=== PATIENT | female | born 1950 | race Caucasian/White ===

== ENCOUNTER 2017-12-06 12:07 | Day surgery (SDC) | payer OTHER ==
[2017-11-29 16:16] VITALS: BMI 29.2
[2017-12-06 15:38] VITALS: TEMP 98.1
[2017-12-06 16:05] VITALS: BP 131/65; PULSE 70
--- NOTE | 2017-12-08 12:02 | PATH ---
Surgical Pathology Report Patient Name: HINA TIERNEY [facility]. Rec. #: [id number] /Age/Gender: 1950 (Age: 67) / F Account: [id number] Location: Taken: 12/06/2017 Received: 12/06/2017 Reported: 12/08/2017 Physicians: Hina Stephens M.D. Specimen(s) Received A: POLYP ASCENDING COLON B: POLYP SIGMOID Clinical History Surveillance, history of polyps Postoperative diagnosis: Ascending colon polyp, sigmoid polyp, hemorrhoids, inadequate prep right colon Final Diagnosis A. ASCENDING COLON, POLYP, BIOPSY: TUBULAR ADENOMA. B. SIGMOID COLON, POLYP, BIOPSY: HYPERPLASTIC POLYP. Electronically Signed Hina Winter M.D. Gross Description A. Received in formalin, labeled "polyp ascending colon" are 2 archer, irregular portions of soft tissue measuring 0.2 and 0.3 cm. in greatest dimension. The specimens are submitted in toto in one cassette. B. Received in formalin, labeled "polyp sigmoid" is a archer, irregular portion of soft tissue measuring 0.3 cm. in greatest dimension. The specimen is submitted in toto in one cassette. YSABEL/12/07/2017 alla/12/07/2017
== END 2017-12-06 16:05 | disposition home or self-care (01) ==
LOC: FASU-ENDO 12:07
PROVIDERS: ATTEND Internal Medicine Gastroenterology
PROC: 0DBL8ZX Excision of Transverse Colon, Via Natural or Artificial Opening Endoscopic, Diagnostic (ICD-10-PCS; 2017-12-06)
PROC: 0DBN8ZX Excision of Sigmoid Colon, Via Natural or Artificial Opening Endoscopic, Diagnostic (ICD-10-PCS; principal; 2017-12-06 14:15)
DX: Z86.010 Personal history of colon polyps (principal); K64.1 Second degree hemorrhoids; D12.2 Benign neoplasm of ascending colon; K63.5 Polyp of colon
CPT/HCPCS: 88305-TC

== ENCOUNTER 2020-07-17 08:02 | Day surgery (SDC) | payer OTHER ==
[2020-07-17] MEDS ORDERED: PROPOFOL 20 ML ONE ×3 (08:06)
[2020-07-17] MEDS ORDERED: LIDOCAINE HCL/PF 2% SDV 5ML VIAL ONE (08:06)
[2020-07-17 08:24] VITALS: BMI 27.4
[2020-07-17 09:37] VITALS: TEMP 98.2
[2020-07-17 10:04] VITALS: BP 122/62; PULSE 50
== END 2020-07-17 10:07 | disposition home or self-care (01) ==
LOC: FASU 08:02
PROVIDERS: ATTEND Internal Medicine Gastroenterology
PROC: 0DBN8ZX Excision of Sigmoid Colon, Via Natural or Artificial Opening Endoscopic, Diagnostic (ICD-10-PCS; 2020-07-17)
PROC: 0DBP8ZX Excision of Rectum, Via Natural or Artificial Opening Endoscopic, Diagnostic (ICD-10-PCS; principal; 2020-07-17 09:16)
DX: Z12.11 Encounter for screening for malignant neoplasm of colon (principal); D12.5 Benign neoplasm of sigmoid colon; K62.1 Rectal polyp; K64.1 Second degree hemorrhoids; K64.4 Residual hemorrhoidal skin tags
CPT/HCPCS: 88305-TC

== ENCOUNTER 2022-01-11 04:09 | Day surgery (SDC) | payer OTHER ==
[2022-01-07 12:57] VITALS: BMI 27.8
[2022-01-11] MEDS ORDERED: ELECTROLYTE-148 SOLN 1,000 ML IV SCH (08:45)
[2022-01-11] MEDS ORDERED: ACETAMINOPHEN INJECTION 100 ML IVPB ONE (09:10)
[2022-01-11] MEDS ORDERED: MIDAZOLAM HCL 2 MG/2 ML SINGLE DOSE VIAL ONE (09:11)
[2022-01-11 10:41] VITALS: BP 121/61; PULSE 59; TEMP 98.7
== END 2022-01-11 10:25 | disposition home or self-care (01) ==
LOC: JASU-SURG 04:09
PROVIDERS: ATTEND Urology
PROC: 0TF4XZZ Fragmentation in Left Kidney Pelvis, External Approach (ICD-10-PCS; principal; 2022-01-11 08:45)
DX: N20.0 Calculus of kidney (principal)